=== PATIENT | female | born 2000 | race Two or more races ===

== ENCOUNTER 2021-07-06 06:58 | Emergency (ER) | payer OTHER ==
[~2021-07-06] VITALS: Ht 180.3 cm; Wt 94.3 kg
[2021-07-06] MEDS ORDERED: EC-NAPROSYN375 MG (07:13)
== END 2021-07-06 15:30 | disposition home or self-care (01) ==
LOC: ER 06:58
DX: R10.31 Right lower quadrant pain (principal); R11.10 Vomiting, unspecified

== ENCOUNTER 2021-07-10 07:20 | Outpatient (CLI) | payer OTHER ==
[~2021-07-10 07:20] MED LIST: EC-NAPROSYN375 MG
== END 2021-07-10 07:26 | disposition home or self-care (01) ==
LOC: SONOGRAMA 07:20
DX: K80.00 Calculus of gallbladder with acute cholecystitis without obstruction (principal)